=== PATIENT | female | born 1960 | race Caucasian/White ===

== ENCOUNTER 2020-06-11 02:48 | Inpatient (IN) | payer MEDICAID ==
[~2020-06-11] VITALS: Ht 154.9 cm; Wt 66.6 kg
[~2020-06-11 02:48] MED LIST: CARV6.2512 PO; LEVO500T47 PO; LISI-170 PO; POLY17PO5 PO; UNKNOWN BP MED
--- NOTE | 2020-06-11 03:31 | NUR ---
attempted to get urine sample from pt, she states she is unable to at this time, pt given water and will reassess later. erp aware
[2020-06-11] MEDS ORDERED: ZIPRASIDONE 20 MG INJ IM ONE ×2 (03:39→04:00)
--- NOTE | 2020-06-11 03:50 | NUR ---
pt very restless and figity, pt given geodon im, pt agreeable for medication. will reassess.
[2020-06-11 04:11] LABS: ALBUMIN 3.9 g/dL (3.4-5.0); CALCIUM 9.9 mg/dL (8.5-10.1); CHLORIDE 109 mmol/L (98-107); CREATININE 2.91 mg/dL (0.55-1.02); SALICYLATE LEVEL 2.3 mg/dL (2.8-20.0)
[2020-06-11 04:14] LABS: MEAN CORPUSCULAR HEMOGLOBIN 26.9 pg (27.0-34.8); MEAN CORPUSCULAR HGB CONC 32.3 g/dL (32.4-35.8); MEAN PLATELET VOLUME 8.5 fL (7.4-10.4); PLATELET COUNT 313 x10^3/uL (130-400); RED BLOOD COUNT 4.19 x10^6/uL (3.82-5.3); RED CELL DISTRIBUTION WIDTH 19.2 % (9.6-15.2)
[2020-06-11 04:29] LABS: ANION GAP 15 mmol/L (5-15)
[2020-06-11] MEDS ORDERED: SODIUM CHLORIDE 0.9% 1,000ML IVBOLUS ONE ×2 (04:30→05:00)
[2020-06-11] MEDS ORDERED: CALCIUM CHLORIDE 10%, 10ML SYR ONE (04:48)
[2020-06-11] MEDS ORDERED: FUROSEMIDE 40 MG/4 ML ONE (04:49)
[2020-06-11] MEDS ORDERED: INSULIN SINGLE DOSE, ER ONE (04:49)
[2020-06-11] MEDS ORDERED: DEXTROSE 50%, 50ML SYRINGE ONE (04:49)
[2020-06-11 05:00] LABS: MD YES
[2020-06-11] MEDS ORDERED: DEXTROSE 50%, 50ML SYRINGE IVPush PRN (05:00)
[2020-06-11] MEDS ORDERED: LABETALOL 5MG/ML, 20ML IVPush PRN (05:00)
[2020-06-11] MEDS ORDERED: CALCIUM CHLORIDE 10%, 10ML SYR IVPush ONE (05:00)
[2020-06-11] MEDS ORDERED: DEXTROSE 4 GM TAB.CHEW PO PRN (05:00)
[2020-06-11] MEDS ORDERED: DEXTROSE 50%, 50ML SYRINGE IVPush ONE (05:00)
[2020-06-11] MEDS ORDERED: DOCUSATE 100 MG CAPSULE PO PRN (05:00)
[2020-06-11] MEDS ORDERED: SODIUM POLYSTYRENE SULFONATE ORAL SUSP PO ONE (05:00)
[2020-06-11] MEDS ORDERED: GLUCAGON 1 MG IM PRN (05:00)
[2020-06-11] MEDS ORDERED: INSULIN REGULAR 100 UNITS/ML, 3ML VIAL IVPush ONE (05:00)
[2020-06-11] MEDS ORDERED: SODIUM CHLORIDE FLUSH 10ML SYR IVF ONE (05:00)
[2020-06-11] MEDS ORDERED: FUROSEMIDE 40 MG/4 ML IVPush ONE (05:00)
[2020-06-11 05:12] LABS: ALBUMIN 3.9 g/dL (3.4-5.0); BILIRUBIN, DIRECT 0.4 mg/dL (0.1-0.2)
[2020-06-11 05:14] LABS: BILIRUBIN,INDIRECT 0.8 mg/dL (0.0-2.0); BILIRUBIN,TOTAL 1.2 mg/dL (0.2-1.0); TOTAL PROTEIN 8.2 g/dL (6.4-8.2)
[2020-06-11 05:16] LABS: BAND#(MANUAL) 0.23 x10^3/uL; BANDS%(MANUAL) 1 % (0-7); LYMPH#(MANUAL) 0.45 x10^3/uL (1-3.4); LYMPHS% (MANUAL) 2 % (22-44); MONOS#(MANUAL) 1.58 x10^3/uL (0.3-2.7); MONOS% (MANUAL) 7 % (2-9); SEG#(MANUAL) 20.25 x10^3/uL (1.8-6.8); SEGS% (MANUAL) 90 % (42-75)
[2020-06-11 05:17] LABS: <PLATELET ESTIMATE> ADEQUATE; <PLT MORPHOLOGY> NORMAL PLT MORPH; <RBC MORPHOLOGY> NORMAL; ANISOCYTOSIS 1+
[2020-06-11 05:22] LABS: % IRON SATURATION 10 % (20-55); IRON LEVEL 33 mcg/dL (50-170); TOTAL IRON BINDING CAPACITY 321 mcg/dL (250-450)
--- NOTE | 2020-06-11 05:40 | NUR ---
iv placed, medication administered per emar, jin placed per md, pt drowsy and falling asleep now, and on the way to ct scan at this time
[2020-06-11 05:49] LABS: MICROSCOPIC NOT IND
[2020-06-11] MEDS ORDERED: CEFTRIAXONE PMX 1GM/50ML 50 ML ONE (06:00)
[2020-06-11] MEDS ORDERED: CARVEDILOL 6.25 MG TABLET ONE (06:00)
[2020-06-11] MEDS ORDERED: CEFTRIAXONE PMX 1GM/50ML 50 ML IV ONE (06:00)
[2020-06-11] MEDS ORDERED: SODIUM POLY SULFONATE UDC 15 GM/60 ML ONE (06:07)
[2020-06-11 06:08] LABS: AMPHETAMINE SCREEN, URINE Positive (Negative); BARBITURATE SCREEN, URINE Negative (Negative); BENZODIAZEPINE SCREEN, URINE Negative (Negative); CANNABINOID SCREEN, URINE Negative (Negative); COCAINE SCREEN, URINE Negative (Negative); METHADONE SCREEN, URINE Negative (Negative); OPIATE SCREEN, URINE Positive (Negative)
[2020-06-11] MEDS: CARVEDILOL 6.25 MG TABLET PO SCH ×2 (06:19→22:28)
--- NOTE | 2020-06-11 06:54 | NUR ---
REPORT RECEIVED FROM PATO HENDERSON FOR TRANSFER OF PATIENT CARE.
[2020-06-11 07:17] VITALS: BP 126/70
--- NOTE | 2020-06-11 07:19 | NUR ---
PATIENT TRANSFERRED TO MEDICAL TELEMETRY VIA GURNEY WITH DONOR SERVICES COORDINATOR IN STABLE CONDITION. ALL PATIENT BELONGINGS GATHERED AND TAKEN TO FLOOR WITH PATIENT.
[2020-06-11] MEDS: SODIUM CHLORIDE 0.9% 1,000 ML IV SCH ×2 (07:34→07:35)
[2020-06-11 08:17] LABS: CHLORIDE,URINE RANDOM 27 mmol/L; POTASSIUM,URINE RANDOM 103 mmol/L; SODIUM,URINE RANDOM 29 mmol/L
[2020-06-11] MEDS: D5%-0.9% NACL 1,000 ML IV SCH ×2 (08:44→15:13)
[2020-06-11] MEDS: SODIUM CHLORIDE FLUSH 10ML SYR IVF SCH ×2 (09:00→22:28)
[2020-06-11 12:07] LABS: ANION GAP 13 mmol/L (5-15); CALCIUM 9.3 mg/dL (8.5-10.1); CHLORIDE 113 mmol/L (98-107); CREATININE 2.43 mg/dL (0.55-1.02)
[2020-06-11 12:53] VITALS: BP 120/67
[2020-06-11 18:41] VITALS: BP 94/66
[2020-06-11] MEDS: LACTATED RINGERS 1,000 ML IV SCH (22:28)
[2020-06-11 23:51] VITALS: BP 105/71
[2020-06-12 05:49] LABS: BASOPHILS % (AUTO) 1 % (0-1); EOSINOPHILS % (AUTO) 2 % (1-7); LYMPHOCYTES % (AUTO) 22 % (22-44); MEAN CORPUSCULAR HEMOGLOBIN 27.6 pg (27.0-34.8); MEAN CORPUSCULAR HGB CONC 33.3 g/dL (32.4-35.8); MONOCYTES % (AUTO) 9 % (2-9); NEUTROPHILS % (AUTO) 66 % (42-75); PLATELET COUNT 239 x10^3/uL (130-400); RED BLOOD COUNT 3.64 x10^6/uL (3.82-5.3); RED CELL DISTRIBUTION WIDTH 19.6 % (9.6-15.2)
[2020-06-12 05:58] LABS: ANION GAP 7 mmol/L (5-15); CALCIUM 8.7 mg/dL (8.5-10.1); CHLORIDE 114 mmol/L (98-107); CREATININE 1.24 mg/dL (0.55-1.02)
[2020-06-12 06:20] LABS: MD NO
[2020-06-12] MEDS: CARVEDILOL 6.25 MG TABLET PO SCH ×2 (06:29→17:29)
[2020-06-12] MEDS ORDERED: POTASSIUM CHLORIDE 10% 40 MEQ/30 ML UDC PO ONE (07:00)
[2020-06-12 07:40] VITALS: BP 127/83
[2020-06-12] MEDS: LACTATED RINGERS 1,000 ML IV SCH ×2 (08:16→18:00)
[2020-06-12] MEDS: SODIUM CHLORIDE FLUSH 10ML SYR IVF SCH ×2 (08:20→21:40)
[2020-06-12] MEDS ORDERED: THIAMINE 200 MG in SODIUM CHLORIDE 0.9% 50 ML IV ONE (08:30)
[2020-06-12] MEDS: THIAMINE 100MG TABLET PO SCH (09:01)
[2020-06-12 12:35] VITALS: BP 137/81
[2020-06-12 19:46] VITALS: BP 142/90
[2020-06-13 01:35] VITALS: BP 164/100
[2020-06-13 05:11] LABS: BASOPHILS % (AUTO) 0 % (0-1); EOSINOPHILS % (AUTO) 3 % (1-7); LYMPHOCYTES % (AUTO) 31 % (22-44); MEAN CORPUSCULAR HEMOGLOBIN 27.8 pg (27.0-34.8); MEAN CORPUSCULAR HGB CONC 33.5 g/dL (32.4-35.8); MEAN PLATELET VOLUME 8.4 fL (7.4-10.4); MONOCYTES % (AUTO) 9 % (2-9); NEUTROPHILS % (AUTO) 57 % (42-75); PLATELET COUNT 230 x10^3/uL (130-400); RED BLOOD COUNT 3.82 x10^6/uL (3.82-5.3)
[2020-06-13 05:17] LABS: MD NO
[2020-06-13 05:25] LABS: ANION GAP 5 mmol/L (5-15); CALCIUM 9.1 mg/dL (8.5-10.1); CHLORIDE 112 mmol/L (98-107); CREATININE 0.81 mg/dL (0.55-1.02)
[2020-06-13] MEDS: CARVEDILOL 6.25 MG TABLET PO SCH ×2 (06:31→17:20)
[2020-06-13] MEDS: LACTATED RINGERS 1,000 ML IV SCH (06:32)
[2020-06-13 06:33] VITALS: BP 130/73
[2020-06-13] MEDS ORDERED: POTASSIUM CHLORIDE 10% 40 MEQ/30 ML UDC PO ONE (07:00)
[2020-06-13 07:53] VITALS: BP 146/95
[2020-06-13] MEDS: THIAMINE 100MG TABLET PO SCH (08:28)
[2020-06-13] MEDS: SODIUM CHLORIDE FLUSH 10ML SYR IVF SCH ×2 (09:00→20:28)
[2020-06-13] MEDS ORDERED: OMNIPAQUE 350 MG/ML, 75ML BOTTLE ONE (11:12)
[2020-06-13 14:05] VITALS: BP 149/97
[2020-06-13 19:29] VITALS: BP_SYST 160; BP_SYST 176; BP_DIAS 80; BP_DIAS 93
[2020-06-13 19:36] LABS: OCCULT BLOOD NEGATIVE (NEGATIVE)
[2020-06-13 20:13] VITALS: BP 129/73
[2020-06-14 03:09] VITALS: BP 156/89
[2020-06-14] MEDS: CARVEDILOL 6.25 MG TABLET PO SCH (05:31)
[2020-06-14 07:18] VITALS: BP 156/88
[2020-06-14] MEDS: SODIUM CHLORIDE FLUSH 10ML SYR IVF SCH (08:23)
[2020-06-14] MEDS: THIAMINE 100MG TABLET PO SCH (08:23)
[2020-06-14] MEDS ORDERED: LISINOPRIL 40 MG TABLET PO SCH (09:00)
[2020-06-14 09:06] LABS: ALANINE AMINOTRANSFERASE 18 U/L (12-78); ANION GAP 5 mmol/L (5-15); CALCIUM 9.4 mg/dL (8.5-10.1); CHLORIDE 111 mmol/L (98-107); CREATININE 0.86 mg/dL (0.55-1.02)
[2020-06-14] MEDS ORDERED: THIA100T67 PO (09:11)
[2020-06-14 09:16] LABS: ALKALINE PHOSPHATASE 80 U/L (45-117); BILIRUBIN,TOTAL 0.7 mg/dL (0.2-1.0); TOTAL PROTEIN 7.1 g/dL (6.4-8.2)
[2020-06-14 12:11] VITALS: BP 157/89
== END 2020-06-14 12:30 | disposition home or self-care (01) | DRG 71 ==
LOC: ED 05:28 → EDIP 05:55 → 5SO 07:18 → DCLOUNGE 06-14 12:23
PROVIDERS: ADMIT Family Medicine; ATTEND Internal Medicine
DX: G93.41 Metabolic encephalopathy (principal); D68.59 Other primary thrombophilia; E87.2 Acidosis; M62.82 Rhabdomyolysis; N17.9 Acute kidney failure, unspecified; R65.10 Systemic inflammatory response syndrome (SIRS) of non-infectious origin without acute organ dysfunction; D50.9 Iron deficiency anemia, unspecified; E86.0 Dehydration; E16.0 Drug-induced hypoglycemia without coma; D72.828 Other elevated white blood cell count; E87.5 Hyperkalemia; E87.6 Hypokalemia; F11.10 Opioid abuse, uncomplicated; F15.10 Other stimulant abuse, uncomplicated; F17.210 Nicotine dependence, cigarettes, uncomplicated; I10 Essential (primary) hypertension; I27.20 Pulmonary hypertension, unspecified; I34.0 Nonrheumatic mitral (valve) insufficiency; I48.0 Paroxysmal atrial fibrillation; T38.3X5A Adverse effect of insulin and oral hypoglycemic [antidiabetic] drugs, initial encounter; Z91.19 Patient's noncompliance with other medical treatment and regimen; Y92.89 Other specified places as the place of occurrence of the external cause
CPT/HCPCS: 36415; 84145; J7042; 70450; 71045; 71275; 76770; 80048; 80053; 80076; 80299; 80307; 80320; 80329; 81003; 82040; 82272; 82436; 82550; 82570; 82962; 83540; 83550; 83605; 84132; 84133; 84300; 84443; 85025; 85379; 87040; 93005; 93306; 96372; 96374; 96375; 99291; G0378; J0696; J1815; J1940; J3411; J3486; Q9967; G0480; J7030; J7120